=== PATIENT | female | born 1965 | race Caucasian/White ===

== ENCOUNTER 2020-09-24 20:34 | Emergency (ER) | payer OTHER ==
[2020-09-24 21:31] LABS: BASOPHIL 0.4 % (0-2); EOSINOPHIL 1.4 % (0-5); HCT 42.5 % (37.0-47.0); HGB 14.3 g/dl (12.5-16.0); LYMPHOCYTE 16.7 % (15-48); MCH 30.4 pg (25.0-31.0); MCHC 33.6 g/dL (32.0-36.0); MCV 90.2 fL (78.0-100.0); MPV 10.4 fL (6.0-9.5); NEUTROPHIL 74.3 % (41-80); NRBC 0; PLT 266 K/uL (150-400); RBC 4.71 M/uL (4.20-5.40); RDW 12.2 % (11.5-14.0)
[2020-09-24 21:41] LABS: INR 1.14 (0.9-1.2); PROTHROMBIN TIME 13.9 SECONDS (11.4-13.6); PTT 28.6 SECONDS (22.2-34.7)
[2020-09-24 21:50] LABS: ALBUMIN 3.7 g/dL (3.4-5.0); BILIRUBIN - TOTAL 0.4 mg/dL (0.2-1.0); BUN/CREAT RATIO (CALC) 16.7 RATIO; CREATININE 0.66 mg/dL (0.51-0.95); POTASSIUM 3.8 mmol/L (3.5-5.1); TOTAL PROTEIN 7.7 g/dL (6.4-8.2)
== END 2020-09-25 08:06 | disposition other institution (70) ==
LOC: FER 20:34
PROVIDERS: Emergency Medicine Emergency Medical Services
DX: S51.852A Open bite of left forearm, initial encounter (principal); R07.89 Other chest pain; R06.02 Shortness of breath; R11.0 Nausea; W54.0XXA Bitten by dog, initial encounter; Z91.030 Bee allergy status
CPT/HCPCS: 36415; 71045; 73090; 80053; 83690; 83880; 84484; 85025; 85379; 85610; 85730; 90471; 90715; 93005; 96372; 96374; 96375; 96376; J1650; J1885; J2060; J2270; J2405